=== PATIENT | male | born 1995 | race Caucasian/White ===

== ENCOUNTER 2018-05-01 10:20 | Emergency (ER) | payer OTHER ==
[2018-05-01 10:27] VITALS: BP 104/72
--- NOTE | 2018-05-01 10:57 | EDPHY ---
H & P Stated Complaint: URI sxs ~ 1 wk; sounds congested Time Seen by Provider: 05/01/18 10:57 HPI/ROS: HPI: This is a 22-year-old male who presents with Chief Complaint: URI sxs ~ 1 wk; sounds congested Location: Chest Quality: Cough, congestion Duration: 7-10 days Signs and Symptoms: + low-grade subjective fever, no nausea, no vomiting, no diarrhea, no urinary symptoms, no chest pain, no shortness of breath, no wheezing, no sore throat, no neck stiffness, no joint pain, no swollen glands, no ear pain, no rash, + fatigue Timing: Worsening Severity: Moderate Context: Patient is an every day tobacco and marijuana user presents with 7-10 day history of chest congestion with productive cough of green and yellow phlegm. Patient reports that he has some nasal congestion and green discharge as well. He reports that he had a history of asthma during his freshman year of school due to smoking but does not regularly use an albuterol inhaler. Denies any wheezing/shortness of breath. He does complain of some low-grade subjective fevers that are worse at night accompanied by fatigue for the last 2- 3 nights. Patient reports that he has been using fdop-jqo-kdegwkv cold medicines without any relief and in fact believes that his symptoms are worsening. Modifying Factors: Wqfz-sjk-jfmjkex medications without relief Comment: ROS: see HPI Constitutional: + fever, + chills, no weight loss Eyes: No blurred vision Respiratory: No shortness of breath, + cough Cardiovascular: No chest pain, no palpitations Gastrointestinal: No nausea, no vomiting, no diarrhea, no hematemesis, no blood in stool Genitourinary: No dysuria, no blood in urine Extremities: No myalgias, no edema Neurologic: No weakness, no numbness Skin: No rashes, no petechiae Hematologic: No bruising, no bleeding MEDICAL/SURGICAL/SOCIAL HISTORY: Medical history: Generally healthy. Does not take any regular medications. Surgical history: Denies Social history: Tobacco and marijuana user. Family history noncontributory. CONSTITUTIONAL: Ill but nontoxic-appearing young adult white male, awake and alert, no obvious distress HEENT: Atraumatic and normocephalic, PERRL, EOMI. Nares patent; no rhinorrhea; no nasal mucosal edema. Tympanic membranes clear. Oropharynx clear, no exudate and moist pink mucosa. Airway patent. No lymphadenopathy. No meningismus. Cardiovascular: Normal S1/S2, regular rate, regular rhythm, without murmur rub or gallop. PULMONARY/CHEST: Symmetrical and nontender. Clear to auscultation bilaterally. Good air movement. No accessory muscle usage. ABDOMEN: Soft, nondistended, nontender, no rebound, no guarding, no peritoneal signs, no masses or organomegaly. No CVAT. EXTREMITIES: 2/2 pulses, strength 5/5, no deformities, no clubbing, no cyanosis or edema. NEUROLOGICAL: no focal neuro deficits. GCS 15. SKIN: Warm and dry, no erythema. no rash. Good capillary refill. Source: Patient Exam Limitations: No limitations - Personal History Current Tetanus Diphtheria and Acellular Pertussis (TDAP): Yes - Medical/Surgical History Other PMH: neg - Social History Smoking Status: Current every day smoker Constitutional: Initial Vital Signs Temperature (C) 36.7 C 05/01/18 10:24 Heart Rate 57 L 05/01/18 10:24 Respiratory Rate 16 05/01/18 10:24 Blood Pressure 104/72 05/01/18 10:24 O2 Sat (%) 99 05/01/18 10:24 O2 Delivery Mode Room Air Allergies/Adverse Reactions: No Known Allergies Allergy (Unverified 05/01/18 10:24) Home Medications: Medication Instructions Recorded Albuterol Sulfate [Proair Hfa] 1 - 2 puffs IH Q4 PRN #1 hfa.aer.ad 05/01/18 Azithromycin [Zithromax] 250 mg PO DAILY #6 tab 05/01/18 Benzonatate [Tessalon Pearles (RX)] 100 mg PO Q6 PRN #12 cap 05/01/18 Medical Decision Making ED Course/Re-evaluation: Vital signs reviewed and stable. No signs of hypoxia/tachypnea/tachycardia. Due to symptoms being present for 10 days; will treat with course of azithromycin as well as antitussives and albuterol inhaler. I do not believe chest x-ray is warranted at this time as he has a low risk for community-acquired pneumonia. This patient was seen under the supervision of my secondary supervising physician. I evaluated care for this patient independently. Differential Diagnosis: Differential diagnosis includes but is not limited to upper respiratory infection, sinusitis, bronchitis, pneumonia, sepsis. Departure - Departure Disposition: Home, Routine, Self-Care Clinical Impression: Acute bacterial bronchitis Condition: Good Instructions: Acute Bronchitis (ED) Additional Instructions: Please refrain from using any tobacco or marijuana products until all symptoms have resolved. Take Azithromycin as directed until complete. Do not skip any doses. Use Albuterol inhaler every 4 hr as needed for shortness of breath, wheezing. Use Tessalon Perles every 6 hr as needed for cough. Consume a minimum of 8-10 glasses of water or electrolyte fluid replacement drinks that include Gatorade, Powerade, Pedialyte. Take aoor-vwv-ipvxfel Sudafed every 6 hr as needed for nasal congestion. Return to the ER immediately if you experience fevers/chills, shortness of breath, abdominal pain, inability to tolerate oral intake, or any other symptoms that concern you. Referrals: [facility],. [Clinic] - As per Instructions Prescriptions: Albuterol Sulfate [Proair Hfa] 1 - 2 puffs IH Q4 PRN #1 hfa.aer.ad PRN Reason: Short Of Breath/Dyspnea Azithromycin [Zithromax] 250 mg PO DAILY #6 tab Benzonatate [Tessalon Pearles (RX)] 100 mg PO Q6 PRN #12 cap PRN Reason: Cough, Moderate
== END 2018-05-01 11:11 | disposition home or self-care (01) ==
DX: J20.9 Acute bronchitis, unspecified (principal); F17.200 Nicotine dependence, unspecified, uncomplicated